=== PATIENT | female | born 1945 | race Caucasian/White ===

== ENCOUNTER 2025-01-20 13:21 | Observation (INO) ==
[2025-01-20 15:03] LABS: Hematocrit (blood only) 44.2 % (37.0-47.0); Hemoglobin 15.1 g/dL (12.0-16.0); Immature Granulocytes # (auto) 0.03 K/uL (0.01-0.20); Immature Granulocytes % (auto) 0.4 %; Mean Corpuscular Hemoglobin 30.9 pg (25.0-34.0); Mean Corpuscular Volume 90.4 fL (80.0-100.0); Platelet Count 266 K/uL (130-400); RDW Standard Deviation 42.6 fL (36.4-46.3); Red Blood Count 4.89 M/uL (4.20-5.40); White Blood Count 8.04 K/ul (4.8-10.8)
--- NOTE | 2025-01-20 15:16 | XRay Report ---
XR chest 1V not portable CLINICAL HISTORY: hypertension COMPARISON STUDY: None FINDINGS: Heart size and pulmonary vasculature are normal. There are minimal faint interstitial opaci ties at the lung bases which could represent minimal scarring. No consolidation or pleural effusion s een. No pneumothorax. IMPRESSION: No acute findings. ACT 112: Negative or not required by law. Electronically signed by: Simon Goldman M.D. 01/20/2025 3:15 PM
[2025-01-20 15:18] LABS: Alanine Aminotransferase 19 U/L (7-52); Albumin Globulin Ratio 1.2 (0.9-2); Albumin Level 4.1 gm/dl (3.4-5.0); Alkaline Phosphatase 97 U/L (34-104); Anion Gap 7 (3-11); Bilirubin,Total 0.6 mg/dl (0.2-1.0); Blood Urea Nitrogen 15 mg/dl (6-23); Calcium 10.0 mg/dl (8.6-10.3); Carbon Dioxide 27 mmol/L (21-32); Chloride 107 mmol/L (98-107); Globulin 3.4 gm/dl (2.5-4.0); Glucose 104 mg/dl (70-99(Fasting)); Lipase 25 U/L (11-82); Magnesium 2.0 mg/dl (1.7-2.4); Potassium 3.9 mmol/L (3.5-5.1); Sodium 141 mmol/L (136-145); Total Protein 7.5 gm/dl (6.0-8.3)
[2025-01-20 15:29] LABS: INR 1.1 (0.9-1.1); Partial Thromboplastin Time 26 Seconds (21-31); Prothrombin Time 11.8 Seconds (9.0-12.0)
[2025-01-20 15:31] LABS: Thyroid Stimulating Hormone 1.275 uIu/ml (0.300-4.500)
[2025-01-20] MEDS: LABETALOL HCL IV 5 MG/ML 20ML IV STA ×2 (17:18→20:36)
[2025-01-20] MEDS: SODIUM CHLORIDE 0.9% 1,000 ML IV ONE (17:18)
--- NOTE | 2025-01-20 18:15 | CT Scan Report ---
CT head without contrast History: Headache Comparison: None Technique: Using multidetector thin collimation helical acquisition technique, axial, coronal and sagittal CT images from the skull base to the vertex were obtained without intravenous contrast. Dose reduction techniques were achieved by using automatic exposure control and/or adjustment of mA and/or kV according to patient size and/or use of iterative reconstruction technique. Findings: No intracranial hemorrhage, mass-effect, or midline shift. The ventricles are proportionate to the cerebral sulci. The bundy to white matter differentiation of the cerebral hemispheres is preserved. The basal cisterns are patent. The visualized paranasal sinuses are clear. Mastoid air cells are clear. Impression: No acute intracranial pathology. Electronically signed by Zane Meraz 01-20-2025 6:14 PM
[2025-01-20] MEDS: METOPROLOL TARTRATE 25 MG TAB PO STA (18:58)
--- NOTE | 2025-01-20 21:20 | History & Physical Report ---
Date of Service January 20, 2025 Assessment & Plan (1) Uncontrolled hypertension: (2) Elevated troponin: (3) Paroxysmal A-fib: Plan The patient is an 79-year-old female with past medical history including paroxysmal atrial fibrillation, hyperlipidemia, hypertension, and vitamin D d eficiency. She presents to the emergency department for evaluation of persistently elevated blood pressure, that was noted at cardiac rehab at 9 AM this morning. She has been exercising less than usual compared to previous years. She reports having a 20 pound weight gain over the past few months. She does upon questioning think she probably is having more salt than usual, and otherwise has been eating a lot of black licorice. She has been taking her medications as directed. She denies any recent trauma, recent travels, or sick exposures. Peak blood pressure in the emergency department was 214/64, with average heart rate around 60. From the ED she received the following: Normal saline 1 L of fluid bolus, labetalol 10 mg IV, metoprolol tartrate 25 mg p.o., and then labetalol 10 mg IV again. With persistently elevated blood pressure, and decrease in heart rate after labetalol, she was referred to the [facility] for further evaluation and treatment. Uncontrolled hypertension/elevated troponin/PAF/hypertension- The patient will be admitted to telemetry for serial cardiac enzymes, serial EKG's, cardiac rhythm monitoring and a 2-D echocardiogram with Dopplers. Labetalol was given IV twice, and 3 of heart rate in the low 50s. Patient likely is having increased blood pressure secondary to decreased ability to exercise due to 20 pound weight gain, more sodium intake than usual. She is unable to thiazide diuretics due to aggravation of gout by causing increased uric acid, for which she was on allopurinol previously. Will place on increased dose of lisinopril. She is usually on 10 mg, will give 20 mg dose this evening, and follow response overnight into the morning. Will attempt to resume metoprolol succinate 25 mg at bedtime tomorrow, depending on heart rate and recovery from use of labetalol. Troponin 17.4 on admission Likely supply/demand mismatch Follow-up pending CT scan head was negative Chest x-ray is negative EKG shows sinus bradycardia at 55 with sinus arrhythmia and left bundle branch block, no change compared to 01/22/2024. Continue Xarelto 20 mg at bedtime given her evening dose this evening CBC with differential, chemistry profile, magnesium, hemoglobin A1c and fasting lipid panel in a.m. Hyperlipidemia- Continue atorvastatin Hypothyroidism- Continue levothyroxine History of Present Illness Primary Care Provider: Sara Betancourt MD The patient is an 79-year-old female with past medical history including paroxysmal atrial fibrillation, hyperlipidemia, hypertension, and vitamin D deficiency. She presents to the emergency department for evaluation of persistently elevated blood pressure, that was noted at cardiac rehab at 9 AM this morning. She has been exercising less than usual compared to previous years. She reports having a 20 pound weight gain over the past few months. She does upon questioning think she probably is having more salt than usual, and otherwise has been eating a lot of black licorice. She has been taking her medications as directed. She denies any recent trauma, recent travels, or sick exposures. Peak blood pressure in the emergency department was 214/64, with average heart rate around 60. From the ED she received the following: Normal saline 1 L of fluid bolus, labetalol 10 mg IV, metoprolol tartrate 25 mg p.o., and then labetalol 10 mg IV again. With persistently elevated blood pressure, and decrease in heart rate after labetalol, she was referred to the [facility] service for further evaluation and treatment. Allergies Allergy/AdvReac Type Severity Reaction Status Date / Time No Known Allergies Allergy Verified 01/20/25 20:38 Home Medications Medication Instructions Recorded Confirmed Type atorvastatin 20 mg tablet 20 mg PO HS 07/24/20 01/20/25 History vitamin B complex 1 cap PO DAILY ##0 07/24/20 01/20/25 History docosahexaenoic acid 200 mg 200 mg PO DAILY 01/22/24 01/20/25 History capsule ( DHA) cholecalciferol (vitamin D3) 75 75 mcg PO DAILY 10/27/24 01/20/25 History mcg (3,000 unit) tablet levothyroxine 75 mcg tablet 75 mcg PO .COMPLEX 10/27/24 01/20/25 History (Synthroid) lisinopril 10 mg tablet 10 mg PO QPM 10/27/24 01/20/25 History vitamin c - zinc 1 tab PO DAILY 10/27/24 01/20/25 History coenzyme Q10 150 mg capsule 150 mg PO DAILY 12/21/24 01/20/25 History biotin 1 mg tablet 0 mg PO DAILY 01/20/25 01/20/25 History metoprolol succinate 25 mg 25 mg PO HS 01/20/25 01/20/25 History tablet,extended release 24 hr rivaroxaban 20 mg tablet (Xarelto) 20 mg PO HS 01/20/25 01/20/25 History Past Med/Surg History Problem List (Updated 01/21/25 @ 05:13 by Adam Adames MD) Uncontrolled hypertension Elevated troponin (Acute) Hypertensive urgency (Acute) Paroxysmal A-fib Hyperlipidemia HTN (hypertension) Overweight (BMI 25.0-29.9) Medical History History of gout Heart murmur RECENTLY DETECTED...07/25/20 CAROTID ARTERIES U/S, ECHO DONE LAST WEEK everything was okay Thyroid disease Surgical History History of colonoscopy History of appendectomy Family History Other Family history of colon cancer in mother Social History Smoking Status: Never smoker Second Hand Exposure: No; Do You Dip or Chew Tobacco: No; Hx Alcohol Use: No Hx Substance Use: No Preferred Language: Egyptian Communication Ability: Effective 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 Feels Safe at Home: Yes Safety Concerns: Feels Safe At This Time Assistive Devices: None Review of Systems Review of Systems: The patient denies chest pain, palpitations, shortness of breath, dyspnea on exertion, cough, lower extremity swelling, sore throat, fevers, chills, sweats, nausea, vomiting, diarrhea , constipation, abdominal pain, pelvic pain, blood in urine or stool, dysuria, urinary frequency or urgency, memory loss, loss of consciousness, rash, abnormal bruising or bleeding, imbalance, focal or generalized weakness, numbness or tingling in arms or legs, generalized arthralgias or myalgias, back or neck pain, or night sweats. The review of systems is otherwise negative other than for that already noted above, and at least 10 systems have been reviewed. Physical Exam Physical Exam: The patient is awake, alert and oriented 3, well developed and well nourished, normocephalic and atraumatic, lying in bed and in no acute distress. HEENT--PERRL, EOMI, mucous membranes and oropharynx normal Neck--supple. No JVD. No bruits. Thyroid normal, trachea midline, no adenopathy. Heart--normal S1 and S2. No murmurs, rubs or gallops. Lungs--clear bilaterally, no respiratory distress, no accessory muscle use. Abdomen--normal bowel sounds and soft. Nontender. Nondistended, no hernias or masses, no organomegaly. Extremities--no cyanosis or clubbing. No edema. There are good distal pulses b/l. Dermatologic--normal skin turgor, normal color, no abnormal lymph nodes, no rash. Neurologic--cranial nerves II through XII grossly intact. Rheumatologic--normal range of motion. Psychiatric--normal affect. Results & Data Results & Data Vital Signs (Past 12 Hours) Vital Signs Pulse Resp BP Pulse Ox O2 Del Method 01/20/25 21:01 51 L 01/20/25 21:00 55 L 19 171/85 H 94 Room Air 01/20/25 20:30 51 L 18 190/117 H 95 Room Air 01/20/25 20:00 56 L 14 198/79 H 94 Room Air 01/20/25 19:30 61 14 172/73 H 93 Room Air 01/20/25 19:15 61 17 180/75 H 93 Room Air 01/20/25 19:00 62 13 190/77 H 94 Room Air 01/20/25 18:45 62 21 174/85 H 94 Room Air 01/20/25 18:30 63 15 190/74 H 94 01/20/25 18:15 65 17 190/71 H 94 01/20/25 18:00 64 18 188/83 H 94 01/20/25 17:45 174/81 H 01/20/25 17:45 60 20 174/81 H 92 01/20/25 17:41 56 L 163/67 H 01/20/25 17:30 59 L 24 163/67 H 91 01/20/25 17:18 57 L 203/78 H 01/20/25 17:15 61 16 203/78 H 93 01/20/25 17:12 55 L 17 203/78 H 01/20/25 17:02 59 L 01/20/25 17:00 60 18 194/74 H 01/20/25 16:54 70 16 214/64 H Laboratory Results Laboratory Results WBC 7.39 K/ul (4.8-10.8) 01/21/25 03:19 RBC 4.22 M/uL (4.20-5.40) 01/21/25 03:19 Hgb 12.7 g/dL (12.0-16.0) 01/21/25 03:19 Hct 37.9 % (37.0-47.0) 01/21/25 03:19 MCV 89.8 fL (80.0-100.0) 01/21/25 03:19 MCH 30.1 pg (25.0-34.0) 01/21/25 03:19 MCHC 33.5 g/dL (32.0-36.0) 01/21/25 03:19 RDW Std Deviation 42.5 fL (36.4-46.3) 01/21/25 03:19 RDW Coeff of Joseph 13.0 % (11.5-14.5) 01/21/25 03:19 Plt Count 223 K/uL (130-400) 01/21/25 03:19 MPV 10.2 fL (9.4-12.4) 01/21/25 03:19 Immature Gran % (Auto) 0.4 % 01/21/25 03:19 Neut % (Auto) 57.3 % 01/21/25 03:19 Lymph % (Auto) 29.6 % 01/21/25 03:19 [place] % (Auto) 9.9 % 01/21/25 03:19 Eos % (Auto) 2.4 % 01/21/25 03:19 Baso % (Auto) 0.4 % 01/21/25 03:19 Neut # (Auto) 4.23 K/uL (1.40-6.50) 01/21/25 03:19 Lymph # (Auto) 2.19 K/uL (1.20-3.40) 01/21/25 03:19 [place] # (Auto) 0.73 K/uL (0.11-0.59) H 01/21/25 03:19 Eos # (Auto) 0.18 K/uL (0.00-0.50) 01/21/25 03:19 Baso # (Auto) 0.03 K/uL (0.00-0.20) 01/21/25 03:19 Immature Gran # (Auto) 0.03 K/uL (0.01-0.20) 01/21/25 03:19 PT 11.8 Seconds (9.0-12.0) 01/20/25 14:43 INR 1.1 (0.9-1.1) 01/20/25 14:43 APTT 26 Seconds (21-31) 01/20/25 14:43 PTT Ratio 1.0 01/20/25 14:43 Sodium 142 mmol/L (136-145) 01/21/25 03:19 Potassium 3.8 mmol/L (3.5-5.1) 01/21/25 03:19 Chloride 110 mmol/L (98-107) H 01/21/25 03:19 Carbon Dioxide 24 mmol/L (21-32) 01/21/25 03:19 Anion Gap 8 (3-11) 01/21/25 03:19 BUN 14 mg/dl (6-23) 01/21/25 03:19 Creatinine 0.66 mg/dl (0.6-1.2) 01/21/25 03:19 Est Cr Clr Drug Dosing 67.7 ml/min 01/21/25 03:19 eGFR 88.62 01/21/25 03:19 BUN/Creatinine Ratio 21.2 (10-20) H 01/21/25 03:19 Glucose 107 mg/dl (70-99(Fasting)) H 01/21/25 03:19 Calcium 8.8 mg/dl (8.6-10.3) 01/21/25 03:19 Magnesium 1.9 mg/dl (1.7-2.4) 01/21/25 03:19 Total Bilirubin 0.5 mg/dl (0.2-1.0) 01/21/25 03:19 AST 16 U/L (13-39) 01/21/25 03:19 ALT 14 U/L (7-52) 01/21/25 03:19 Alkaline Phosphatase 77 U/L (34-104) 01/21/25 03:19 Troponin I High Sens 15.2 pg/ml (0-14) H 01/21/25 03:19 Total Protein 5.8 gm/dl (6.0-8.3) L D 01/21/25 03:19 Albumin 3.3 gm/dl (3.4-5.0) L 01/21/25 03:19 Globulin 2.5 gm/dl (2.5-4.0) 01/21/25 03:19 Albumin/Globulin Ratio 1.3 (0.9-2) 01/21/25 03:19 Triglycerides 138 mg/dl (0-150) 01/21/25 03:19 Cholesterol 137 mg/dl (0-200) 01/21/25 03:19 LDL Cholesterol, Calc 66 mg/dl 01/21/25 03:19 VLDL Cholesterol, Calc 28 mg/dl (0-30) 01/21/25 03:19 HDL Cholesterol 43 mg/dl 01/21/25 03:19 Cholesterol/HDL Ratio 3.2 (0-5) 01/21/25 03:19 Lipase 25 U/L (11-82) 01/20/25 14:43 TSH 1.275 uIu/ml (0.300-4.500) 01/20/25 14:43 Impressions Chest X-Ray 01/20/25 14:46 XR chest 1V not portable CLINICAL HISTORY: hypertension COMPARISON STUDY: None FINDINGS: Heart size and pulmonary vasculature are normal. There are minimal faint interstitial opacities at the lung bases which could represent minimal scarring. No consolidation or pleural effusion seen. No pneumothorax. IMPRESSION: No acute findings. ACT 112: Negative or not required by law. Electronically signed by: Simon Goldman M.D. 01/20/2025 3:[address] 01/20/25 16:59 CT head without contrast History: Headache Comparison: None Technique: Using multidetector thin collimation helical acquisition technique, axial, coronal and sagittal CT images from the skull base to the vertex were obtained without intravenous contrast. Dose reduction techniques were achieved by using automatic exposure control and/or adjustment of mA and/or kV according to patient size and/or use of iterative reconstruction technique. Findings: No intracranial hemorrhage, mass-effect, or midline shift. The ventricles are proportionate to the cerebral sulci. The bundy to white matter differentiation of the cerebral hemispheres is preserved. The basal cisterns are patent. The visualized paranasal sinuses are clear. Mastoid air cells are clear. Impression: No acute intracranial pathology. Electronically signed by Zane Meraz 01-20-2025 6:14 PM Code Status & VTE Plan Code Status Full code VTE Prophylaxis Plan VTE Prophylaxis will be ordered: Yes PG Care Time/CCT Total # of Minutes Spent Total Time Spent with Patient: Total time spent is greater than 50% in coordination of care (as documented) at patient's floor/unit and/or counseling patient: Coding Level of Care Code 89029 INT INP/OBS CARE 3/75MIN Diagnoses Uncontrolled hypertension I10 Elevated troponin R79.89 Paroxysmal A-fib I48.0
[2025-01-20] MEDS: RIVAROXABAN 20 MG TAB PO STA (21:43)
--- NOTE | 2025-01-20 23:02 | Emergency Department Note ---
History of Present Illness General Chief complaint: Hypertension Stated complaint: HIGH BP Time Seen by Provider: 01/20/25 16:55 History of Present Illness Provider complaint: Hypertension 79-year-old female presents emergency department for hypertension. Patient reports that she was at cardiac rehab at 9 AM and then felt very bad. Patient states she felt a headache and felt like she was going to pass out. Patient denies any chest pain or difficulty breathing. Patient states she stopped her rehab and they took her blood pressure was elevated so she presented to the emergency department. Home Medications Medication Instructions Recorded Confirmed Type atorvastatin 20 mg tablet 20 mg PO HS 07/24/20 01/20/25 History vitamin B complex 1 cap PO DAILY ##0 07/24/20 01/20/25 History docosahexaenoic acid 200 mg 200 mg PO DAILY 01/22/24 01/20/25 History capsule ( DHA) cholecalciferol (vitamin D3) 75 75 mcg PO DAILY 10/27/24 01/20/25 History mcg (3,000 unit) tablet levothyroxine 75 mcg tablet 75 mcg PO .COMPLEX 10/27/24 01/20/25 History (Synthroid) lisinopril 10 mg tablet 10 mg PO QPM 10/27/24 01/20/25 History vitamin c - zinc 1 tab PO DAILY 10/27/24 01/20/25 History coenzyme Q10 150 mg capsule 150 mg PO DAILY 12/21/24 01/20/25 History biotin 1 mg tablet 0 mg PO DAILY 01/20/25 01/20/25 History metoprolol succinate 25 mg 25 mg PO HS 01/20/25 01/20/25 History tablet,extended release 24 hr rivaroxaban 20 mg tablet (Xarelto) 20 mg PO HS 01/20/25 01/20/25 History Allergies Allergy/AdvReac Type Severity Reaction Status Date / Time No Known Allergies Allergy Verified 01/20/25 20:38 Past Med/Surg History Problem List (Updated 01/20/25 @ 23:09 by Saúl Cartwright MD) Elevated troponin (Acute) Hypertensive urgency (Acute) Paroxysmal A-fib Hyperlipidemia HTN (hypertension) Overweight (BMI 25.0-29.9) Medical History History of gout Heart murmur RECENTLY DETECTED...07/25/20 CAROTID ARTERIES U/S, ECHO DONE LAST WEEK everything was okay Thyroid disease Surgical History History of colonoscopy History of appendectomy Family History Other Family history of colon cancer in mother Social History Smoking Status: Never smoker Second Hand Exposure: No; Do You Dip or Chew Tobacco: No; Hx Alcohol Use: No Hx Substance Use: No Preferred Language: [place] Communication Ability: Effective Radio Equipment Installer Required: No Beliefs That Will Affect Care: None Current Living Situation: Alone current occupation: Retired. Feels Safe at Home: Yes Assistive Devices: Glasses Physical Exam Vital Signs Vital Signs - 24 hr 01/20/25 16:54 01/20/25 17:00 01/20/25 17:02 Pulse Rate 70 60 59 L Pulse Rate from SpO2 Sensor Respiratory Rate 16 18 Blood Pressure 214/64 H 194/74 H Blood Pressure Mean 114 114 Pulse Oximetry Oxygen Delivery Method 01/20/25 17:12 01/20/25 17:15 01/20/25 17:18 Pulse Rate 55 L 61 57 L Pulse Rate from SpO2 Sensor 59 L Respiratory Rate 17 16 Blood Pressure 203/78 H 203/78 H 203/78 H Blood Pressure Mean 119 119 Pulse Oximetry 93 Oxygen Delivery Method 01/20/25 17:30 01/20/25 17:41 01/20/25 17:45 Pulse Rate 59 L 56 L 60 Pulse Rate from SpO2 Sensor 59 L 61 Respiratory Rate 24 20 Blood Pressure 163/67 H 163/67 H 174/81 H Blood Pressure Mean 99 112 Pulse Oximetry 91 92 Oxygen Delivery Method 01/20/25 17:45 01/20/25 18:00 01/20/25 18:15 Pulse Rate 64 65 Pulse Rate from SpO2 Sensor 65 66 Respiratory Rate 18 17 Blood Pressure 174/81 H 188/83 H 190/71 H Blood Pressure Mean 120 118 110 Pulse Oximetry 94 94 Oxygen Delivery Method 01/20/25 18:30 01/20/25 18:45 01/20/25 19:00 Pulse Rate 63 62 62 Pulse Rate from SpO2 Sensor 63 62 62 Respiratory Rate 15 21 13 Blood Pressure 190/74 H 174/85 H 190/77 H Blood Pressure Mean 112 114 114 Pulse Oximetry 94 94 94 Oxygen Delivery Method Room Air Room Air 01/20/25 19:15 01/20/25 19:30 01/20/25 20:00 Pulse Rate 61 61 56 L Pulse Rate from SpO2 Sensor 60 61 53 L Respiratory Rate 17 14 14 Blood Pressure 180/75 H 172/73 H 198/79 H Blood Pressure Mean 110 136 118 Pulse Oximetry 93 93 94 Oxygen Delivery Method Room Air Room Air Room Air 01/20/25 20:30 01/20/25 21:00 01/20/25 21:01 Pulse Rate 51 L 55 L 51 L Pulse Rate from SpO2 Sensor 54 L 55 L Respiratory Rate 18 19 Blood Pressure 190/117 H 171/85 H Blood Pressure Mean 154 113 Pulse Oximetry 95 94 Oxygen Delivery Method Room Air Room Air Physical Exam GENERAL: oriented to person, place, and time. appears well-developed and well- nourished. HENT: Exam performed. - Head: Normocephalic and atraumatic. EYES: Conjunctivae and EOM are normal. Right eye exhibits no discharge. Left eye exhibits no discharge. No scleral icterus. NECK: Normal range of motion. Neck supple. No JVD present. CV: Normal rate, regular rhythm, normal heart sounds and intact distal pulses. There is no peripheral edema. Palpable radial pulses bue. PULM/CHEST: Effort normal and breath sounds normal. No respiratory distress. No stridor. no wheezes. no rales. ABD: The abdomen is soft. There is no tenderness. NEURO: Motor and sensation grossly intact. SKIN: Skin is warm and dry. He is not diaphoretic. PSYCH: normal mood and affect. Behavior is normal. Judgment and thought content normal. Course Course 1654: The patient was evaluated in room C4. A complete history and physical exam was performed Cardiac monitoring: An order was placed for continuous cardiac monitoring. The monitor shows a rate of 60 with sinus rhythm interpreted by me 1730: Patient's blood pressure improved with labetalol. 2025: Patient becoming hypotension again with systolic blood pressures ranging around 200 despite getting IV labetalol and her home dose of metoprolol for her evening medications. Patient's imaging is unremarkable. Labs show mildly elevated high sensitive troponin. Family is at bedside and now reporting that the patient has intermittent jaw pain for the last day. Given this history, the patient's elevated blood pressure, and her elevated high-sensitivity troponin [facility]. Repeat dose of IV labetalol ordered for the patient. 2100: Patient's blood pressure improved with IV labetalol again. Administered Medications Discontinued Medications Sodium Chloride (Nss) 1,000 mls @ 999 mls/hr IV .Q1H1M ONE Stop: 01/20/25 15:48 Last Infusion: 01/20/25 18:34 Dose: Infused Documented By: Admin: 01/20/25 17:18 Dose: 999 mls/hr Documented By: YOLI Labetalol HCl (Labetalol Hcl Iv 5 Mg/Ml 20ml) 10 mg IV NOW STA Stop: 01/20/25 16:59 Last Admin: 01/20/25 17:18 Dose: 10 mg Documented By: YOLI Labetalol HCl (Labetalol Hcl Iv 5 Mg/Ml 20ml) 10 mg IV NOW STA Stop: 01/20/25 20:30 Last Admin: 01/20/25 20:36 Dose: 10 mg Documented By: DOMINIK Metoprolol Tartrate (Metoprolol Tartrate 25 Mg Tab) 25 mg PO NOW STA Stop: 01/20/25 18:50 Last Admin: 01/20/25 18:58 Dose: 25 mg Documented By: YOLI Rivaroxaban (Rivaroxaban 20 Mg Tab) 20 mg PO NOW STA Stop: 01/20/25 21:11 Last Admin: 01/20/25 21:43 Dose: 20 mg Documented By: DOMINIK Critical Care Time Critical Care Time: Yes Total Critical Care Time: 44 I have personally spent greater than 44 minutes of critical care time in the direct management of this patient. This includes bedside care, interpretation of diagnostic studies, and testing, discussion with consultants, patient, and family members, and other required patient management activities. This 44 minutes is in excess of all separately billable procedures. Medical Decision Making Laboratory Data Attestation: I reviewed the patient's lab results. 01/20/25 14:43 01/20/25 14:43 Lab Results 01/20/25 01/20/25 01/20/25 Range/Units 14:43 17:42 21:32 WBC 8.04 (4.8-10.8) K/ul RBC 4.89 (4.20-5.40) M/uL Hgb 15.1 (12.0-16.0) g/dL Hct 44.2 (37.0-47.0) % MCV 90.4 (80.0-100.0) fL MCH 30.9 (25.0-34.0) pg MCHC 34.2 (32.0-36.0) g/dL RDW Std Deviation 42.6 (36.4-46.3) fL RDW Coeff of Joseph 13.0 (11.5-14.5) % Plt Count 266 (130-400) K/uL MPV 10.0 (9.4-12.4) fL Immature Gran % (Auto) 0.4 % Neut % (Auto) 60.9 % Lymph % (Auto) 27.4 % [place] % (Auto) 8.3 % Eos % (Auto) 2.5 % Baso % (Auto) 0.5 % Neut # (Auto) 4.90 (1.40-6.50) K/uL Lymph # (Auto) 2.20 (1.20-3.40) K/uL [place] # (Auto) 0.67 H (0.11-0.59) K/uL Eos # (Auto) 0.20 (0.00-0.50) K/uL Baso # (Auto) 0.04 (0.00-0.20) K/uL Immature Gran # (Auto) 0.03 (0.01-0.20) K/uL PT 11.8 (9.0-12.0) Seconds INR 1.1 (0.9-1.1) APTT 26 (21-31) Seconds PTT Ratio 1.0 Sodium 141 (136-145) mmol/L Potassium 3.9 (3.5-5.1) mmol/L Chloride 107 (98-107) mmol/L Carbon Dioxide 27 (21-32) mmol/L Anion Gap 7 (3-11) BUN 15 (6-23) mg/dl Creatinine 0.63 (0.6-1.2) mg/dl Est Cr Clr Drug Dosing Not Reportable eGFR 89.62 BUN/Creatinine Ratio 23.8 H (10-20) Glucose 104 H (70-99(Fasting)) mg/dl Calcium 10.0 (8.6-10.3) mg/dl Magnesium 2.0 (1.7-2.4) mg/dl Total Bilirubin 0.6 (0.2-1.0) mg/dl AST 22 (13-39) U/L ALT 19 (7-52) U/L Alkaline Phosphatase 97 (34-104) U/L Troponin I High Sens 17.4 H 19.0 H (0-14) pg/ml Total Protein 7.5 (6.0-8.3) gm/dl Albumin 4.1 (3.4-5.0) gm/dl Globulin 3.4 (2.5-4.0) gm/dl Albumin/Globulin Ratio 1.2 (0.9-2) Lipase 25 (11-82) U/L TSH 1.275 (0.300-4.500) uIu/ml Imaging Data Attestation: I personally reviewed and interpreted this imaging study as follows: My Impression: Chest x-ray negative. Airway clear. No pneumothorax. No consolidation. No cardiomegaly or cephalization.. No free air under the diaphragm. No fractures of the skeletal structures. Radiologist's Impression: Chest X-Ray 01/20/25 14:46 XR chest 1V not portable CLINICAL HISTORY: hypertension COMPARISON STUDY: None FINDINGS: Heart size and pulmonary vasculature are normal. There are minimal faint interstitial opacities at the lung bases which could represent minimal scarring. No consolidation or pleural effusion seen. No pneumothorax. IMPRESSION: No acute findings. ACT 112: Negative or not required by law. Electronically signed by: Simon Goldman M.D. 01/20/2025 3:[address] 01/20/25 16:59 CT head without contrast History: Headache Comparison: None Technique: Using multidetector thin collimation helical acquisition technique, axial, coronal and sagittal CT images from the skull base to the vertex were obtained without intravenous contrast. Dose reduction techniques were achieved by using automatic exposure control and/or adjustment of mA and/or kV according to patient size and/or use of iterative reconstruction technique. Findings: No intracranial hemorrhage, mass-effect, or midline shift. The ventricles are proportionate to the cerebral sulci. The bundy to white matter differentiation of the cerebral hemispheres is preserved. The basal cisterns are patent. The visualized paranasal sinuses are clear. Mastoid air cells are clear. Impression: No acute intracranial pathology. Electronically signed by Zane Meraz 01-20-2025 6:14 PM ECG Data Attestation: I personally reviewed and interpreted this ECG as follows: Additional Comments: EKG #1 at 1434: Sinus rhythm with rate of 66. HI 156 QRS 166 QTc 478. Left bundle branch block present. Sgarbossa negative. No significant change from the EKG in January 2024. EKG #2 at 2034: Sinus rhythm with a rate of 55. HI 148 QRS 162 QTc 449. Left bundle branch block present. Sgarbossa negative. No significant change from the previous EKGs. [facility] Narrative 1655: The patient was evaluated in room C4. A complete history and physical exam was performed Cardiac monitoring: An order was placed for continuous cardiac monitoring. The monitor shows a rate of 60 with sinus rhythm interpreted by me 1730: Patient's blood pressure improved with labetalol. 2025: Patient becoming hypotension again with systolic blood pressures ranging around 200 despite getting IV labetalol and her home dose of metoprolol for her evening medications. Patient's imaging is unremarkable. Labs show mildly elevated high sensitive troponin. Family is at bedside and now reporting that the patient has intermittent jaw pain for the last day. Given this history, the patient's elevated blood pressure, and her elevated high-sensitivity troponin [facility] Repeat dose of IV labetalol ordered for the patient. 2099: Patient's blood pressure improved with IV labetalol again. Impression & Plan Hypertensive urgency, Elevated troponin Discharge Plan Visit Data Chief Complaint: Hypertension Stated Complaint: HIGH BP ED Provider: Saúl Cartwright Discharge Problem: Hypertensive urgency, Elevated troponin Patient Disposition: Admitted As Inpatient Condition: Serious Forms Stand Alone Forms: My [facility] Prescriptions Prescriptions: No Action coenzyme Q10 150 mg capsule 150 mg PO DAILY lisinopril 10 mg tablet 10 mg PO QPM cholecalciferol (vitamin D3) 75 mcg (3,000 unit) tablet 75 mcg PO DAILY vitamin c - zinc 1 tab PO DAILY DHA 200 mg capsule 200 mg PO DAILY atorvastatin 20 mg Tablet 20 mg PO HS vitamin B complex Capsule 1 cap PO DAILY Qty: 0 levothyroxine [Synthroid] 75 mcg tablet 75 mcg PO .COMPLEX Rx Instructions: 75 mcg orally daily 6 days a week; metoprolol succinate 25 mg tablet extended release 24 hr 25 mg PO HS biotin 1 mg Tablet 0 mg PO DAILY Rx Instructions: PT UNSURE OF MG Xarelto 20 mg tablet 20 mg PO HS Referrals Referrals: Sara Betancourt MD [Primary Care Provider] -
[2025-01-20 23:38] VITALS: RESP 18
[2025-01-21] MEDS ORDERED: ACETAMINOPHEN 325 MG TAB PO PRN (00:14)
[2025-01-21 04:07] LABS: Hematocrit (blood only) 37.9 % (37.0-47.0); Hemoglobin 12.7 g/dL (12.0-16.0); Immature Granulocytes # (auto) 0.03 K/uL (0.01-0.20); Immature Granulocytes % (auto) 0.4 %; Mean Corpuscular Hemoglobin 30.1 pg (25.0-34.0); Mean Corpuscular Volume 89.8 fL (80.0-100.0); Platelet Count 223 K/uL (130-400); RDW Standard Deviation 42.5 fL (36.4-46.3); Red Blood Count 4.22 M/uL (4.20-5.40); White Blood Count 7.39 K/ul (4.8-10.8)
[2025-01-21 04:32] LABS: Alanine Aminotransferase 14.0 U/L (7-52); Albumin Globulin Ratio 1.3 (0.9-2); Albumin Level 3.3 gm/dl (3.4-5.0); Alkaline Phosphatase 77.0 U/L (34-104); Anion Gap 8.0 (3-11); Bilirubin,Total 0.5 mg/dl (0.2-1.0); Blood Urea Nitrogen 14.0 mg/dl (6-23); Calcium 8.8 mg/dl (8.6-10.3); Carbon Dioxide 24.0 mmol/L (21-32); Chloride 110.0 mmol/L (98-107); Cholesterol 137.0 mg/dl (0-200); Creatinine Clr Calc Pharmacy 67.7 ml/min; Globulin 2.5 gm/dl (2.5-4.0); Glucose 107.0 mg/dl (70-99(Fasting)); HDL Cholesterol 43.0 mg/dl; Magnesium 1.9 mg/dl (1.7-2.4); Potassium 3.8 mmol/L (3.5-5.1); Sodium 142.0 mmol/L (136-145); Total Protein 5.8 gm/dl (6.0-8.3); Triglycerides 138.0 mg/dl (0-150)
[2025-01-21] MEDS: LEVOTHYROXINE SODIUM 75 MCG TABLET PO SCH (06:28)
[2025-01-21 07:15] LABS: Hemoglobin A1C 6.5 % (4.5-5.6)
[2025-01-21] MEDS: CHOLECALCIFEROL 25 MCG (1000 UNITS) TAB PO SCH (09:03)
[2025-01-21] MEDS: VITAMIN B COMPLEX TAB PO SCH (09:04)
--- NOTE | 2025-01-21 10:04 | Electrocardiogram Report ---
Test Reason : Blood Pressure : */* mmHG Vent. Rate : 66 BPM Atrial Rate : 66 BPM P-R Int : 156 ms QRS Dur : 166 ms QT Int : 456 ms P-R-T Axes : 36 -30 108 degrees QTcB Int : 478 ms Normal sinus rhythm Left axis deviation Left bundle branch block Abnormal ECG When compared with ECG of 24-Jun-2024 08:27, (unconfirmed) No significant change was found Confirmed by Saul Lara ([id number]) on 01/21/2025 10:04:37 AM Referred By: REFERRED SELF Confirmed By: Saul Lara
[2025-01-21 10:21] VITALS: BP 167/65; TEMP 98.1; O2SAT 92
[2025-01-21 14:59] VITALS: PULSE 56
--- NOTE | 2025-01-21 15:11 | Discharge Summary ---
Discharge Summary Date of Service January 21, 2025 Principal Dx & Hospital Course #1 = Principal Diagnosis (1) Uncontrolled hypertension: (2) Elevated troponin: (3) Paroxysmal A-fib: Plan The patient is an 79-year-old female with past medical history including paroxysmal atrial fibrillation, hyperlipidemia, hypertension, and vitamin D deficiency. She presents to the emergency department for evaluation of persistently elevated blood pressure, that was noted at cardiac rehab at 9 AM this morning. She has been exercising less than usual compared to previous years. She reports having a 20 pound weight gain over the past few months. She does upon questioning think she probably is having more salt than usual, and otherwise has been eating a lot of black licorice. She has been taking her medications as directed. She denies any recent trauma, recent travels, or sick exposures. Peak blood pressure in the emergency department was 214/64, with average heart rate around 60. From the ED she received the following: Normal saline 1 L of fluid bolus, labetalol 10 mg IV, metoprolol tartrate 25 mg p.o., and then labetalol 10 mg IV again. With persistently elevated blood pressure, and decrease in heart rate after labetalol, she was referred to the [facility] for further evaluation and treatment. Uncontrolled hypertension/elevated troponin/PAF/hypertension- Patient likely is having increased blood pressure secondary to decreased ability to exercise due to 20 pound weight gain, more sodium intake than usual. She is unable to thiazide diuretics due to aggravation of gout by causing increased uric acid, for which she was on allopurinol previously. Will place on increased dose of lisinopril. She is usually on 10 mg, will give 20 mg dose this evening, and follow response overnight into the morning. Will resume metoprolol succinate 25 mg at bedtime Troponin 17.4 on admission Likely supply/demand mismatch CT scan head was negative Chest x-ray is negative will add amlodipine as BP appears better but still not at goal. will recommend close followup with PCP Continue Xarelto 20 mg at bedtime given her evening dose this evening Hyperlipidemia- Continue atorvastatin Hypothyroidism- Continue levothyroxine Admission HPI Per Admitting Provider The patient is an 79-year-old female with past medical history including paroxysmal atrial fibrillation, hyperlipidemia, hypertension, and vitamin D deficiency. She presents to the emergency department for evaluation of persistently elevated blood pressure, that was noted at cardiac rehab at 9 AM this morning. She has been exercising less than usual compared to previous years. She reports having a 20 pound weight gain over the past few months. She does upon questioning think she probably is having more salt than usual, and otherwise has been eating a lot of black licorice. She has been taking her medications as directed. She denies any recent trauma, recent travels, or sick exposures. Peak blood pressure in the emergency department was 214/64, with average heart rate around 60. From the ED she received the following: Normal saline 1 L of fluid bolus, labetalol 10 mg IV, metoprolol tartrate 25 mg p.o., and then labetalol 10 mg IV again. With persistently elevated blood pressure, and decrease in heart rate after labetalol, she was referred to the [facility] for further evaluation and treatment. Discharge Exam Constitutional WD/WN, vitals as above Neck trachea midline, no thyromegaly Respiratory normal respiratory effort, lungs clear to auscultation Cardiovascular RRR, no murmur, no edema Discharge Plan Discharge Items Patient Disposition: Home - Self-Care Reason For Visit: ELEVATED BP, INCREASED TROPONIN Discharge Diagnosis: elevated Blood pressure Condition on Discharge: Serious Activity: Resume your previous activity Non-emergency contact: Primary Care Provider Call non-emergency contact if: you have any medication questions Follow-up/Referrals: Zane Sherman MD [Physician] - 01/25/25 8:30 am (Cardiology follow up: 01/25/25 @ 8:30 with Rima Aguilera) Sara Betancourt MD [Primary Care Provider] - 02/01/25 1:00 pm (02/01/25 at 1:00 with Sara Betancourt) Diet: Heart Healthy Addtl Attending Provider Instructions: Followup with your PCP in 1-2 weeks. Start amlodipine tomorrow. Please folllowup with Fitting Room Associate within 1 month. Pending Studies at Discharge: No Stand-Alone Forms: My [facility], Smoking Cessation Medications and DC Order Prescriptions: New amlodipine 2.5 mg tablet 2.5 mg PO PM Qty: 30 0RF Continued coenzyme Q10 150 mg capsule 150 mg PO DAILY vitamin c - zinc 1 tab PO DAILY atorvastatin 20 mg Tablet 20 mg PO HS vitamin B complex Capsule 1 cap PO DAILY Qty: 0 metoprolol succinate 25 mg tablet extended release 24 hr 25 mg PO HS Xarelto 20 mg tablet 20 mg PO HS Changed lisinopril 20 mg tablet 20 mg PO PM Qty: 30 0RF No Action biotin 1 mg tablet 1 mg PO DAILY cholecalciferol (vitamin D3) 125 mcg (5,000 unit) capsule 125 mcg PO DAILY Qty: 30 0RF DHA 200 mg capsule 200 mg PO DAILY Rx Instructions: (01/24/25- Unsure- will bring) levothyroxine [Synthroid] 75 mcg tablet 75 mcg PO .COMPLEX Rx Instructions: 75 mcg orally daily 6 days a week; ( does not take Friday) lisinopril-hydrochlorothiazide 10-12.5 mg tablet 1 tab PO DAILY Qty: 30 2RF Discharge Orders: Discharge Order (Routine); Ordered 01/21/25 Ordered By: Darrick Guzman/Other Patient Handouts: Low-Salt Choices, Resources for People with Diabetes, Managing Type 2 Diabetes, High Blood Pressure Risk Factors Admission Data Admit Date/Time: 01/20/25 21:18 Attending Provider: Darrick Duffy Admit Provider: Adam Adames Primary Care Provider: Sara Betancourt Other Providers: Adam Adames Other Interventions: Discharge Summary Assessment (RN) Last Done: 01/21/25 14:53 Hospital Stay Data Consultations 01/20/25 20:30 ED Decision to Admit Stat Diagnostic Imagining Performed 01/20/25 16:59 CT head/brain wo con Stat Pending Results Patient Have Any Pending Studies at Discharge: No Discharge Instructions Given to Patient (Per Discharging Provider) Followup with your PCP in 1-2 weeks. Start amlodipine tomorrow. Please folllowup with Fitting Room Associate within 1 month. Total Time Total Time Spent Total Time Spent (In Minutes): 32 Spent over 30 minutes discussing discharge plan, evaluating patient, reviewing chart and formulating discharge Coding Level of Care Code 98230 INP/OBS DISCH >30 MIN Diagnoses Uncontrolled hypertension I10 Elevated troponin R79.89 Paroxysmal A-fib I48.0
--- NOTE | 2025-01-21 20:14 | Electrocardiogram Report ---
Test Reason : Blood Pressure : */* mmHG Vent. Rate : 55 BPM Atrial Rate : 55 BPM P-R Int : 148 ms QRS Dur : 162 ms QT Int : 470 ms P-R-T Axes : 9 -27 154 degrees QTcB Int : 449 ms Sinus bradycardia with marked sinus arrhythmia Left bundle branch block Abnormal ECG When compared with ECG of 20-Jan-2025 14:34, T wave inversion more evident in Lateral leads Confirmed by Saul Lara ([id number]) on 01/21/2025 8:14:44 PM Referred By: REFERRED SELF Confirmed By: Saul Lara
[2025-01-21] MEDS ORDERED: RIVAROXABAN 20 MG TAB PO SCH (21:00)
[2025-01-21] MEDS ORDERED: ATORVASTATIN 20 MG TAB PO SCH (21:00)
[2025-01-21] MEDS ORDERED: METOPROLOL SUCC 25MG EXT REL TAB PO SCH (21:00)
--- NOTE | 2025-01-22 08:10 | Electrocardiogram Report ---
Test Reason : Blood Pressure : */* mmHG Vent. Rate : 59 BPM Atrial Rate : 59 BPM P-R Int : 170 ms QRS Dur : 158 ms QT Int : 486 ms P-R-T Axes : 42 -21 157 degrees QTcB Int : 481 ms Sinus bradycardia with marked sinus arrhythmia Left bundle branch block Abnormal ECG When compared with ECG of 20-Jan-2025 20:35, (unconfirmed) No significant change was found Confirmed by Saul Lara ([id number]) on 01/22/2025 8:10:42 AM Referred By: REFERRED SELF Confirmed By: Saul Lara
== END 2025-01-21 15:55 | disposition home or self-care (01) ==
LOC: ED 13:21 → 2E 13:21 → SUATTDRO 21:18 → 2E 23:09